=== PATIENT | male | born 1995 | race Two or more races ===

== ENCOUNTER 2020-11-26 16:30 | Emergency (ER) | payer OTHER, SELFPAY ==
[2020-11-26 17:49] VITALS: BP 137/80; PULSE 75; RESP 18; TEMP 36.8; O2SAT 100; BMI 32.5
--- NOTE | 2020-11-26 18:04 | ED_ITS ---
HPI - Fever General Chief Complaint: Fever Stated Complaint: fever Source: patient Mode of arrival: ambulatory Limitations: no limitations History of Present Illness HPI Narrative: 25-year-old male presents with upper respiratory symptoms, subjective fevers, chills, and left eye redness with goopy green drainage. Patient was just released from long-term and has concerns about COVID-19. He does not report any chest pain or pressure, palpitations, shortness of breath, shortness of breath on exertion, weakness, dizziness, abdominal pain, abdominal distention, dysuria, hematuria, nausea, vomiting, diarrhea, constipation, or any other concerning symptoms. MD elicited complaint: fever and malaise Onset (ago): day(s) Context: sick contacts Relieving factors: nothing Associated symptoms: myalgias, rhinorrhea, nasal congestion, sore throat and cough Treatments prior to arrival fever: none Related Data Previous Rx's Medication Instructions Recorded erythromycin 5 mg/gram (0.5 %) eye 1 appl OPHTHALMIC-LEFT Q4H 7 Days 11/26/20 ointment #1 g Allergies Allergy/AdvReac Type Severity Reaction Status Date / Time UNKNOWN MED AdvReac Hives Uncoded 11/26/20 18:12 Review of Systems Review of Systems: Constitutional: positive Fever, positive Chills, positive fatigue, positive Malaise ENT/Mouth: positive sore throat, positive runny nose Eyes: Positive erythema and green thick Discharge Cardiovascular: No Chest Pain, No SOB Respiratory: Positive Cough, No Sputum, No Wheezing, No Smoke Exposure, No Dyspnea Gastrointestinal: No Nausea, No Vomiting, No Diarrhea Genitourinary: no irregular bleeding, No Dysuria, No Urinary Frequency, No Hematuria, No Urinary Incontinence, No Urgency, No Flank Pain, Musculoskeletal: positive Myalgia Skin: No rash Neuro: No Headache Yes all other systems are reviewed and are negative [facility] Past Medical History Attestation statement: The following information was validated with the patient. Source: old records reviewed Medical History (Updated 11/26/20 @ 19:01 by Calli Waterman NP) Patient denies medical problems Social History Social History Advance Directives: No Advance Directives Information Provided: No Physical Exam Vital Signs: Vital Signs: Last Vital Signs Temp 98.2 F 11/26/20 17:49 Pulse 75 11/26/20 17:49 Resp 18 11/26/20 17:49 BP 137/80 11/26/20 17:49 Pulse Ox 100 11/26/20 17:49 Body Mass Index 32.5 Appearance: Alert. Oriented X3. Mild distress. Head: Normal external exam. Normocephalic. Atraumatic. No Khan signs noted. No raccoon eyes noted Eyes: PERRLA. EOMI. Conjunctiva erythematous purulent drainage consistent with conjunctivitis Eyelids normal. ENT: TM's Normal. Pharynx normal. Uvula midline. Moist mucous membranes. No trismus noted. No drooling noted. No muffled voice noted. Neck: Normal inspection. Neck supple. No adenopathy. Thyroid Normal. No meningeal signs. No neck mass noted. CVS: Normal heart rate and rhythm. Heart sound normal. No murmurs noted. Pulses equal to all extremities. Respiratory: No respiratory distress. Painless inspiration. Breath sounds normal. No wheezes/rales/rhonchi noted. Chest nontender. No accessory muscle usage noted or decreased air movement noted. Abdomen: Soft and nontender. Bowel sounds normal in all 4 quadrants. No distention noted. No organomegaly noted. No visible injury noted. Back: No CVA tenderness. Full range of motion noted. Skin: Skin warm and dry. Normal skin color. Normal skin turgor. No rashes/lesions/lacerations noted. Extremities: No lower extremity edema. Extremities exhibit normal range of motion. Extremities nontender. Neuro: cranial nerves 2-12 intact, no focal neural deficits, strength 5/5 to all extremities, No motor deficit. No sensory deficit. Course Course Course Narrative: 25-year-old male presents with upper respiratory symptoms and conjunctivitis. Will order COVID-19 testing. Will treat for conjunctivitis to the left eye. Bedside Snellen completed with vision 20/20 with glasses on to both eyes. COVID test is negative. Plan of care is to discharge home with supportive measures. Patient verbalized understanding of and agrees to plan of care. MDM - Fever Differential Diagnosis Differential diagnosis: Likely fever of unknown origin, viral infection and influenza Medical Records Attestation: I reviewed the patient's medical records. Lab Data Attestation: I reviewed the patient's lab results. Labs: Lab Results 11/26/20 Range/Units 19:01 COVID-19 (DEBRA) Negative (Negative) COVID-19 Clin Com See Note Discharge Plan Discharge Clinical Impression: Viral syndrome Conjunctivitis Qualifiers: Conjunctivitis type: acute Acute conjunctivitis type: bacterial Laterality: left Qualified Code(s): H10.32 - Unspecified acute conjunctivitis, left eye Patient Disposition: Home, Self-Care Instructions: Viral Syndrome (ED), Conjunctivitis (ED) Additional Instructions: You evaluated for upper respiratory symptoms. You have conjunctivitis. Use erythromycin eye ointment every 4 hours while awake for 7 days. Wash her hands before and after applying the eye ointment. You were evaluated for symptoms consistent with COVID-19 and or COVID-19 positive exposure. Please maintain social isolation per State and Federal guidelines. Is your responsibility to maintain these guidelines. Your test results are pending. We will call you with the results. You must treat yourself as if you are positive until your test results come back. Thank you for choosing this emergency department for evaluation. Please follow-up with primary care physician as needed. Return to the emergency department for any new, concerning, or worsening symptoms. Prescriptions: New erythromycin 5 mg/gram (0.5 %) ointment 1 appl ophthalmic-Left Q4H 7 Days Qty: 1 RF: 0 Stand Alone Forms: Work/School Release Interventions: ED Discharge Assessment Last Done: 11/26/20 19:32 Discharge Date/Time: 11/26/20 19:36
--- NOTE | 2020-11-26 19:00 | PC.NURSE ---
PT C/O LEFT EYE REDNESS SINCE THURSDAY. ALSO C/O CHILLS AND COUGH. RESP UNLABORED. NO DISTRESS. NO VISUAL CHANGES.
[2020-11-26 19:24] LABS: COVID-19 Test Negative (Negative); IDNOW Serial# 9DD0AD1C
[2020-11-26] MEDS: Erythromycin Base 0.5% Oph Oin 1 GM TUBE 1 CM EYE-LEFT (19:24)
== END 2020-11-26 19:36 | disposition home or self-care (01) ==
PROVIDERS: Nurse Practitioner Family; Emergency Provider Internal Medicine
DX: B34.9 Viral infection, unspecified (principal); H10.32 Unspecified acute conjunctivitis, left eye; Z20.822 Contact with and (suspected) exposure to COVID-19; R50.9 Fever, unspecified; J02.9 Acute pharyngitis, unspecified
CPT/HCPCS: 36415; 87635; 99283